=== PATIENT | female | born 1985 | race Caucasian/White ===

== ENCOUNTER 2025-02-11 07:17 | Outpatient (CLI) | payer BC, SELFPAY ==
--- NOTE | 2025-02-11 07:15 | CRLHL7_ITS ---
For Patients: As a result of the Cures Act, medical imaging exams and procedure reports are released immediately into your electronic medical record. You may view this report before your referring provider. If you have questions, please contact your health care provider. OB ULTRASOUND LMP: 07/20/2024. MEL by LMP: 04/26/2025. GA: 29 w, 3 d. Single. INDICATION: Polyhydramnios, mild. TECHNIQUE: Real time grayscale imaging of the fetus was performed. Transabdominal. CERVIX: Not visualized. POSITIONING: Vertex. AMNIOTIC FLUID: 25.1 cm DOROTHY. 8.3 cm. SDP (N: greater than 2 x 1 cm) PLACENTA: Technique: Transabdominal. PLACENTA POSITION: Anterior. DOPPLER: heart rate: 150 bpm. IMPRESSION: Amniotic fluid single deepest pocket 8.3 cm. DOROTHY 25.1 cm. Sha Young M.D. Diagnostic Radiologist [email or web address] CASSIDY/mirian vela/Dictated by: Sha Young MD @ 02/11/2025 9:45:00 AM (Electronically Signed)
== END 2025-02-11 07:18 | disposition home or self-care (01) ==
LOC: US 07:18
PROVIDERS: Visit Provider Physician Assistant
DX: O40.3XX0 Polyhydramnios, third trimester, not applicable or unspecified (principal); Z3A.29 29 weeks gestation of pregnancy
CPT/HCPCS: 76815

== ENCOUNTER 2025-02-12 07:50 | Outpatient (CLI) | payer BC, SELFPAY | END 2025-02-12 07:51 | disposition home or self-care (01) | LOC: NFLDREF 02-15 11:41 | PROVIDERS: Visit Provider Physician Assistant | DX: O99.213 Obesity complicating pregnancy, third trimester (principal) | CPT/HCPCS: 82951; 82952 ==

== ENCOUNTER 2025-03-01 07:18 | Outpatient (CLI) | payer BC, SELFPAY ==
--- NOTE | 2025-03-01 07:15 | CRLHL7_ITS ---
For Patients: As a result of the Century Cures Act, medical imaging exams and procedure reports are released immediately into your electronic medical record. You may view this report before your referring provider. If you have questions, please contact your health care provider. OB ULTRASOUND FOLLOW-UP CLINICAL HISTORY: Mild polyhydramnios, growth and DOROTHY. TECHNIQUE: Real time dove scale imaging of the fetus was performed. Transabdominal imaging performed. COMPARISON: 02/11/2025. FINDINGS: LMP: 07/20/2024. MEL by LMP: 04/26/2025. GA: 32 weeks 0 days. Cervix: Not visualized. Positioning: Vertex. Amniotic Fluid: 25.8 cm DOROTHY. 8.9 cm SDP. Placenta Technique: TA. Placenta Position: Anterior. Dopplers: Heart Rate: 133 bpm. BIOMETRY BPD: 8.2 cm, 32 weeks 6 days. 69.0% HC: 30.4 cm, 33 weeks 6 days. 62.5% AC: 28.5 cm, 32 weeks 4 days. 64.6% FL: 6.2 cm, 32 weeks 4 days. 45.7% FL/AC Ratio: 21.9% HC/AC Ratio: 1.1. EFW: 2015 grams, 4 lb 7 oz. Age by this US: 32 weeks 6 days. MEL by this US: 04/20/2025. Percentile by MEL: 59.9% IMPRESSION: 1. Sonographic gestational age 32 weeks 6 days and sonographic due date 04/20/2025. Sonographic age is 6 weeks ahead of the clinical age. 2. Estimated weight 60th percentile. Abdominal circumference 65th percentile. 3. Amniotic fluid single deepest pocket 8.9 cm. DOROTHY 25.8 cm. Sha Young M.D. Diagnostic Radiologist [email or web address] Transcribed: 1:51 pm DW/Dictated by: Sha Young MD @ 03/01/2025 1:03:00 PM (Electronically Signed)
== END 2025-03-01 07:19 | disposition home or self-care (01) ==
LOC: US 07:19
PROVIDERS: Visit Provider Physician Assistant
DX: O40.3XX0 Polyhydramnios, third trimester, not applicable or unspecified (principal); O99.213 Obesity complicating pregnancy, third trimester; E66.01 Morbid (severe) obesity due to excess calories; Z68.41 Body mass index [BMI] 40.0-44.9, adult; O36.63X0 Maternal care for excessive fetal growth, third trimester, not applicable or unspecified; Z3A.32 32 weeks gestation of pregnancy
CPT/HCPCS: 76816

== ENCOUNTER 2025-03-18 09:02 | Outpatient (CLI) | payer BC, SELFPAY ==
--- NOTE | 2025-03-18 09:15 | CRLHL7_ITS ---
For Patients: As a result of the Century Cures Act, medical imaging exams and procedure reports are released immediately into your electronic medical record. You may view this report before your referring provider. If you have questions, please contact your health care provider. OB ULTRASOUND FOLLOW-UP CLINICAL HISTORY: Polyhydramnios. COMPARISON: 03/01/2025, 02/11/2025. TECHNIQUE: Real time dove scale imaging of the fetus was performed. Transabdominal imaging performed. FINDINGS: MEL by LMP: 04/16/2025. GA: 34 weeks 3 days. Gestation: Single. Cervix: Not visualized. Positioning: Vertex. Placenta: Technique: TA. Placenta Position: Anterior. Dopplers: Heart Rate: 152 bpm. IMPRESSION: Amniotic fluid single deepest pocket 9.1 cm. DOROTHY 26.3 cm. Sha Young M.D. Diagnostic Radiologist [email or web address] Transcribed: 10:17 am DW/Dictated by: Sha Young MD @ 03/18/2025 10:01:00 AM (Electronically Signed)
== END 2025-03-18 09:03 | disposition home or self-care (01) ==
LOC: US 09:06
PROVIDERS: Visit Provider Obstetrics & Gynecology
DX: O40.3XX0 Polyhydramnios, third trimester, not applicable or unspecified (principal); Z3A.34 34 weeks gestation of pregnancy
CPT/HCPCS: 76815

== ENCOUNTER 2025-03-30 09:10 | Outpatient (CLI) | payer BC, SELFPAY ==
--- NOTE | 2025-03-30 09:15 | CRLHL7_ITS ---
For Patients: As a result of the Century Cures Act, medical imaging exams and procedure reports are released immediately into your electronic medical record. You may view this report before your referring provider. If you have questions, please contact your health care provider. OB ULTRASOUND MEL by LMP: 04/26/2025. GA: 36 w, 1 d. Single. Comparison: Ultrasound 03/18/2025, 03/15/2025, 03/01/2025. INDICATION: Polyhydramnios. TECHNIQUE: Real time grayscale imaging of the fetus was performed. Transabdominal. CERVIX: Not visualized. POSITIONING: Vertex. AMNIOTIC FLUID: 27.0 DOROTHY. 10.7 cm. SDP (N: greater than 2 x 1 cm) PLACENTA: Technique: Transabdominal. PLACENTA POSITION: Anterior. DOPPLER: heart rate: 144 bpm. BIOMETRY: BPD: 8.9 cm. 36 w, 0 d, 54.2%. HC: 32.6 cm. 36 w, 6 d, 38.5%. AC: 33.3 cm. 37 w, 2 d, 86.3%. FL: 7.0 cm. 35 w, 6 d, 38.0%. FL/AC ratio: 21.0%. HC/AC ratio: 1.0. EFW: 3012g. Weight: 6 lbs., 10 oz. age by this US: 36 w, 4 d. MEL by this US: 04/23/2025. Percentile by MEL: 67.9%. IMPRESSION: 1. Sonographic gestational age 36 weeks 4 days and sonographic due date 04/23/2025. Good correlation with dates. Normal interval growth. 2. Estimated weight 68th percentile. Abdominal circumference 86th percentile. 3. Amniotic fluid single deepest pocket 7 cm. DOROTHY 27.0 cm. Sha Young M.D. Diagnostic Radiologist [email or web address] CASSIDY/mirian vela/Dictated by: Sha Young MD @ 03/30/2025 11:48:00 AM (Electronically Signed)
== END 2025-03-30 09:11 | disposition home or self-care (01) ==
LOC: US 09:10
PROVIDERS: Visit Provider Obstetrics & Gynecology
DX: O40.3XX0 Polyhydramnios, third trimester, not applicable or unspecified (principal); Z3A.36 36 weeks gestation of pregnancy
CPT/HCPCS: 76816

== ENCOUNTER 2025-04-13 13:50 | Outpatient (CLI) | payer BC, SELFPAY ==
--- NOTE | 2025-04-13 14:00 | CRLHL7_ITS ---
For Patients: As a result of the Cures Act, medical imaging exams and procedure reports are released immediately into your electronic medical record. You may view this report before your referring provider. If you have questions, please contact your health care provider. OB ULTRASOUND TRANSABDOMINAL LIMITED Clinical History: MEL by LMP: 04/26/5025. GA: 38 w, 1 d. Single. Comparison: 03/30/2025, 03/18/2025, 03/15/2025. INDICATION: Mild poly. TECHNIQUE: Real time dove scale imaging of the fetus was performed. Transabdominal imaging performed. CERVIX: Not visualized. POSITIONING: Vertex. AMNIOTIC FLUID: 25.8 cm. DOROTHY. 10.1 cm SDP (N: greater than 2 x 1 cm) PLACENTA: Technique: Transabdominal. PLACENTA POSITION: Anterior. DOPPLER: heart rate: 136 bpm. IMPRESSION: Amniotic fluid single deepest pocket 10.1 cm. DOROTHY 25.8 cm. Sha Young M.D. Diagnostic Radiologist [email or web address] SP/Dictated by: Sha Young MD @ 04/13/2025 4:06:00 PM (Electronically Signed)
== END 2025-04-13 13:51 | disposition home or self-care (01) ==
LOC: US 13:51
PROVIDERS: Visit Provider Obstetrics & Gynecology
DX: O40.3XX0 Polyhydramnios, third trimester, not applicable or unspecified (principal); Z3A.38 38 weeks gestation of pregnancy
CPT/HCPCS: 76815

== ENCOUNTER 2025-04-13 19:43 | Inpatient (IN) | payer BC, SELFPAY ==
[2025-04-13] VITALS (20 sets, daily range): BP systolic 130–148; BP diastolic 60–85; PULSE 73–97; RESP 16–17; TEMP 36.6–36.7; O2SAT 97
[2025-04-13 15:44] LABS: Hematocrit* 35.2 % (33.0-51.0); Hemoglobin* 11.6 gm/dL (12.0-16.0); Mean Corpuscular HGB Conc 33 gm/dL (32-36); Mean Corpuscular Hemoglobin 32 pg (26-34); Mean Corpuscular Volume 96 fL (80-100); Red Blood Count* 3.68 m/uL (4.00-5.20); White Blood Count* 12.12 K/uL (4.50-11.00)
[2025-04-13 15:51] LABS: Slide Review Reflex No
[2025-04-13 15:59] LABS: Alanine Aminotransferase* 17 U/L (4-35); Aspartate Amino Transferase* 24 U/L (12-35); Blood Urea Nitrogen* 9 mg/dL (5-24); Creatinine* 0.6 mg/dL (0.5-1.5); Estimated Glomerular Filt Rate 117 ml/min
[2025-04-13 16:39] LABS: Protein Creatinine Ratio Urine 0.11 (0-0.19)
--- NOTE | 2025-04-13 18:36 | W.PM.LDBA ---
Subjective History of Present Illness Date Seen: 04/13/25 Narrative: Patient is being admitted to Labor and Delivery for IOL due to meeting criteria of GHTN. She is a 40 year old at 38 1/7 weeks gestation. Her full history and physical was dictated by Dr. Laird on 04/06/25. Please see this for details. Patient seen today in clinic and found with elevated blood pressures in the mild range. Patient had already an isolated elevated blood pressure in January- due to this currently meets criteria for GHTN. Recommendation has been given for admission and start IOL. Labs today show no evidence of proteinuria, neither concerns for severe hypertension disorder of . Patient denies headaches, vision changes or pain in her upper abdomen. Specific Issues/Plans Partner: [] Baby girl: Nataliia Yarbrough H&P: 04/06/[address] Laird * testing- scheduled # AMA, 40 Genetic screening: low risk, AFP low risk Level 2 ultrasound: normal # obesity, BMI 44.97 ASA 81mg Referral to anesthesia: [x] 04/06/25 Weekly testing starting at 34 weeks Growth ultrasound at 28 and 34 weeks Delivery: 39-39.6 weeks # Mild polyhydramnios, DOROTHY 27.85 at 27+4 weeks Delivery 39 0/7 - 40 6/7 DOROTHY every 2 weeks 02/11/25: DOROTHY 25.1, SDP 8.3 cm 03/01/25: DOROTHY 25.8, SDP 8.9 cm 03/18/26: DOROTHY 26.3, SDP 9.1 cm 03/30/25: DOROTHY 27, SDP 10.7 Growth every 4 weeks 02/02/25 (28 1/7): EFW 73rd percentile, AC 71st percentile, DOROTHY 27.85, MVP 9.275 Growth at 32 weeks: EFW 2015 g (60%), BPD 69%, HC 62.5%, AC 65%, FL 46%. Growth at 36 weeks: EFW 67.9%, AC 86.3%, all other growth parameters normal. # elevated blood pressure 02/02/2025: 135/92. 9/: 122/82 Home blood pressure monitoring: At transfer visit had not started monitoring # history of genital herpes Valtrex 500 mg BID at 36 weeks # 1hour GTT: 144 3 hour GTT: all normal 88/177/146/83 # anxiety, doing well without treatment # Rubella nonimmune MMR PP Imagin. 10/20/2024: 13 weeks 1 day, normal nuchal translucency. Anatomy normal for gestational age 2. 12/15/2024: Normal anatomy. echo was very limited. No evidence of placenta previa. Normal amniotic fluid normal growth 3. 02/02/25: EFW 73rd percentile, AC 71st percentile, DOROTHY 27.85, MVP 9.275 4. 03/01/25: Vertex presentation, SDP 8.9 cm, DOROTHY 25.8 cm (mild polyhydramnios), EFW 2015 g (60%), BPD 69%, HC 62.5%, AC 65%, FL 46%. 5. 03/18/2025: Vertex, SDP 9.1 cm, DOROTHY 26.3 cm (mild polyhydramnios) 7. 03/30/2025: Cephalic, DOROTHY 27, SDP 6.7, EFW 67.9%, AC 86.3%, BPD 54.2%, HC 38.5%, FL 38% Vaccinations: COVID: [] Flu: [] Tdap: 02/11/2025 RSV: 03/18/25 32 week mental health: [] Last pap: 12/29/2021 Labs 09/30/2024: O positive, negative antibody screen, hemoglobin 12.4, platelets 272, rubella nonimmune, RPR nonreactive, hepatitis B surface antigen negative, hepatitis-B antibody positive, hepatitis B core negative, HIV negative, gonorrhea and Chlamydia negative, urine culture negative hep C negative 28 week labs 02/02/2025: Hemoglobin 11.1, 1 hour GTT 144, RPR negative OB - Problem Based A/P Additional Plan (1) Gestational hypertension: Status: Acute (2) Polyhydramnios: Problem details: Mild Status: Acute (3) Obesity affecting : Status: Acute Plan IOL started with placement of cook catheter 50mL on each balloon. Plan to start low dose Oxytocin overnight. Continuous monitoring. Close monitoring of vital signs, will note repeat labs unless new concerns arise for severe hypertension. GBS negative, no need for antibiotic prophylaxis. Pain management as per patient preference. OB Result Labs Labs: Hemoglobin upon admission 11.6mg/dL Type and screen ordered OB Exam Physical Exam Vital signs: Temp Pulse Resp BP Pulse Ox 97.9 F 96 17 137/80 97 04/13/25 15:02 04/13/25 18:34 04/13/25 15:02 04/13/25 18:34 04/13/25 15:02 Detailed Labor and Delivery Exam Patient Gravid: yes Dilation (cm): 1 Effacement (%): 75 Cervix position: mid Consistency: soft Fetus (Single) Station: -2 Amniotic Membrane Status: intact Heart Rate Baseline: 120 Monitor Accelerations: Present Monitor Decelerations: None Nursing Home Variability: Moderate (6-25) (At the moment, moderate upon admission, will continue close monitoring. )
[2025-04-14] VITALS (118 sets, daily range): BP systolic 111–168; BP diastolic 58–103; PULSE 64–100; RESP 16–18; TEMP 36.5–36.9; O2SAT 82–100
[2025-04-14] MEDS: OXYTOCIN 30 unit/500 ML in NS 30 UNIT/500 ML BAG IVPB (02:24)
[2025-04-14] MEDS: LACTATED RINGERS 1000 ML 1,000 ML 125 ML IV ×2 (02:24→09:28)
--- NOTE | 2025-04-14 08:16 | P.OBPN_ITS ---
Subjective Time Seen by Provider: 08:32 Date Seen: 04/14/25 Narrative: Surinder is a 40yo at 38w2d GA admitted for IOL in the setting of gestational HTN. is otherwise complicated by AMA, obesity, polyhydramnios, genital herpes (on valtrex). IOL has included cook catheter and low dose pitocin overnight. Cook came out just prior to 0800, pitocin titration ongoing. Patient is feeling well, notes minimal pain with contractions. Explained potential next steps in induction inc luding amniotomy, where risks/benefits were discussed. Objective Exam: General: Alert and oriented, in no acute distress Psych: Appropriate mood and affect Abdomen: Gravid. FHR: Category 1. Baseline 135bpm, moderate variability, accelerations present, no decelerations [place]: difficult to appreciate contractions Cervix: 3/75/-3. vertex is palpable but easily ballotable. Vital Signs: Last Vital Signs Temp 98.5 F 04/14/25 05:17 Pulse 78 04/14/25 07:55 Resp 18 04/14/25 05:17 BP 139/85 04/14/25 07:55 Pulse Ox 97 04/13/25 15:02 Assessment Station: -2 Heart Rate Baseline: 120 Monitor Accelerations: Present Monitor Decelerations: None Plan Plan: Surinder is a 40yo at 38w2d GA admitted for IOL in the setting of gestational HTN. is otherwise complicated by AMA, obesity, polyhydramnios, genital herpes (on valtrex). - IOL has included cook catheter and pitocin. Cervix is now 3/75/-3, given high station and ballotable vertex patient is not a safe candidate for amniotomy at this time. Plan to continue Pitocin titration, where patient will likely have epidural placed in the next few hours (will only start medication if she feels it is needed). Plan to recheck cervix in about 4 hours at which time AROM will likely be recommended. - BPs have been normal to mild range throughout hospitalization. Asymptomatic, preE labs normal on admission. - Last growth US on 03/30 with EFW 3012g at 68%ile. - MVP 10.1cm, DOROTHY 25.8cm via US on 04/13 - BT O+ - GBS negative
[2025-04-14] MEDS: MAGNESIUM IV 4 GM/100 ML PIGGYBACK IVPB (14:38)
[2025-04-14] MEDS: LABETALOL HCL 5 MG/ML inj IVP (14:53)
[2025-04-14] MEDS: MAGNESIUM Infusion 40 GM/1,000 ML IV.SOLN IVPB (15:09)
[2025-04-14 15:17] LABS: Hematocrit* 33.7 % (33.0-51.0); Hemoglobin* 10.9 gm/dL (12.0-16.0); Mean Corpuscular HGB Conc 32 gm/dL (32-36); Mean Corpuscular Hemoglobin 32 pg (26-34); Mean Corpuscular Volume 98 fL (80-100); Red Blood Count* 3.44 m/uL (4.00-5.20); White Blood Count* 14.29 K/uL (4.50-11.00)
[2025-04-14 15:31] LABS: Blood Urea Nitrogen* 12 mg/dL (5-24); Creatinine* 0.7 mg/dL (0.5-1.5); Estimated Glomerular Filt Rate 113 ml/min
[2025-04-14 15:32] LABS: Alanine Aminotransferase* 18 U/L (4-35); Aspartate Amino Transferase* 23 U/L (12-35)
[2025-04-14 15:35] LABS: Slide Review Reflex No
[2025-04-14] MEDS: ACETAMINOPHEN 500 MG TABLET 1000 MG PO (15:41)
[2025-04-14] MEDS: LACTATED RINGERS 1000 ML 1,000 ML 75 ML IV (18:06)
[2025-04-14] MEDS: LACTATED RINGERS 1000 ML 1,000 ML 375 ML IV (19:23)
[2025-04-14] MEDS: ROPIVACAINE 0.2% 100 ml 100 ML 12 MG EPIDURAL (19:36)
[2025-04-14] MEDS: LIDOCAINE 2% (PF) 5 ML VIAL EPIDURAL (19:43)
--- NOTE | 2025-04-14 19:47 | PM.ANBPRC ---
[facility] Social History Narrative: Occupation: []. Marital status: . Amish/cultural needs: no. Chemical or radiation exposure: no. Pre- tobacco use: no. Pre- alcohol use: no. Current tobacco use: no. Current alcohol use: no. Recreational drug use: no. Dietary restrictions: no. Blood transfusion acceptable in an emergency: yes. PSYCHOSOCIAL HISTORY: History of depression or currently depressed: History of depression. Current or past physical, emotional, or sexual mistreatment: Denies. Problems that will make it hard to make it to appointments: Denies. What is your current living situation?: I presently have a place to live Problems where you live: no known problems In the past 12 months, utilities in danger of being shut off: no In past 12 months, lack of transportation kept you from medical appts, meetings, work, or getting things needed for daily living: no In the past 12 mos, have been you worried that your food would run out before you had money to buy more?: never true In the past 12 mos, the food you bought just didn't last and you didn't have money to buy more?: never true Smoking Status: Never smoker How often does anyone, including family, friends and others, physically hurt you: never How often does anyone, including family, friends and others, insult or talk down to you: never How often does anyone, including family, friends and others, threaten you with harm: never How often does anyone, including family, friends and others, scream or curse at you: never Meds Home Medications and Allergies Home Medications ?Medication ?Instructions ?Recorded ?Confirmed ?Type [id number] 3 fatty no.1 27 cap PO 02/08/25 04/13/25 History mg-1 mg-300 mg capsule aspirin 81 mg tablet 81 mg PO QDAY 02/08/25 04/13/25 History cholecalciferol (vitamin D3) 50 50 mcg PO QDAY 02/08/25 04/13/25 History mcg (2,000 unit) capsule valacyclovir 1 gram tablet 1,000 mg PO QDAY #30 tabs 03/18/25 04/13/25 Rx calcium carbonate (Tums) 650 mg PO ONCE 03/30/25 04/13/25 History Allergies Allergy/AdvReac Type Severity Reaction Status Date / Time cat hair Allergy Watery Eye Uncoded 04/13/25 14:20 Results Labs Labs: Laboratory Results - last 24 hr 04/13/25 04/14/25 18:55 Unknown WBC 14.29 H RBC 3.44 L Hgb 10.9 L Hct 33.7 MCV 98 MCH 32 MCHC 32 Plt Count 232 BUN 12 Creatinine 0.7 Estimated GFR 113 AST 23 ALT 18 Blood Type O Positive Antibody Screen NEGATIVE Vital Signs Vital Signs: Last Vital Signs Temp 97.9 F 04/14/25 17:34 Pulse 70 04/14/25 19:43 Resp 18 04/14/25 15:30 BP 116/65 04/14/25 19:43 Pulse Ox 100 04/14/25 19:43 Weight: 68.039 kg Height: 162.56 cm Anesthesia Procedures Epidural Insertion Patient Location: OB Start Time: 19:10 Stop Time: 19:48 Start Date: 04/14/25 Stop Date: 04/14/25 Reason for Block: procedure for pain Patient Position: sitting Performed By: Kennedy Lobato Preanesthetic Checklist: IV checked, risks and benefits discussed, surgical consent, monitors and equipment checked, pre-op evaluation, timeout performed and anesthesia consent Prep: chlorhexidine gluconate Monitoring: blood pressure monitoring, continuous pulse oximetry and heart rate Approach: midline Vertebral Space: lumbar (1-5) Epidural Technique: CHRISTOPHE air Needle Type: Tuohy needle Injection Technique: continuous catheter Needle gauge: 17 Needle Length (cm): 10 cm Needle Insertion Depth (cm): 9 Catheter Gauge: 19 Catheter Type: multi-orifice Catheter at skin depth (cm): 14 Test Dose Result: negative and lidocaine 1.5% with epinephrine 1 to 200,000
[2025-04-14 22:02] LABS: Protein Creatinine Ratio Urine 0.37 (0-0.19)
[2025-04-14 22:52] LABS: Hematocrit* 33.8 % (33.0-51.0); Hemoglobin* 10.8 gm/dL (12.0-16.0); Mean Corpuscular HGB Conc 32 gm/dL (32-36); Mean Corpuscular Hemoglobin 32 pg (26-34); Mean Corpuscular Volume 99 fL (80-100); Red Blood Count* 3.43 m/uL (4.00-5.20); White Blood Count* 15.42 K/uL (4.50-11.00)
[2025-04-14 22:57] LABS: Alanine Aminotransferase* 17 U/L (4-35); Aspartate Amino Transferase* 29 U/L (12-35); Blood Urea Nitrogen* 13 mg/dL (5-24); Creatinine* 0.7 mg/dL (0.5-1.5); Est. Creatinine Clearance* 93.17; Estimated Glomerular Filt Rate 113 ml/min
[2025-04-14 23:01] LABS: Slide Review Reflex No
--- NOTE | 2025-04-14 23:55 | PM.OBPNL ---
Subjective Time Seen by Provider: 23:25 Date Seen: 04/14/25 Narrative: Surinder is a 40yo at 38w2d GA admitted for IOL in the setting of gestational HTN. is otherwise complicated by AMA, obesity, polyhydramnios, genital herpes (on valtrex). IOL has included cook catheter, pitocin and AROM. She is comfortable s/p epidural, now complete by RN exam. Objective Exam: General: Alert and oriented, in no acute distress Psych: Appropriate mood and affect Abdomen: Gravid. FHR: Category 2. Baseline 135bpm, minimal to moderate variability, variable decelerations with pushing with rapid return to normal baseline. [place]: Contractions about q2-3 minutes Cervix: 10/100/+1.5 Vital Signs: Last Vital Signs Temp 97.9 F 04/14/25 17:34 Pulse 85 04/14/25 23:47 Resp 18 04/14/25 15:30 BP 150/72 H 04/14/25 23:47 Pulse Ox 100 04/14/25 23:51 Assessment Station: -2 Heart Rate Baseline: 120 Monitor Accelerations: Present Monitor Decelerations: None Plan Plan: Surinder is a 40yo at 38w2d GA admitted for IOL in the setting of gestational HTN. is otherwise complicated by AMA, obesity, polyhydramnios, genital herpes (on valtrex). Patient is complete and pushing. Good maternal effort, have not yet appreciated descent though it has only been 30 minutes of pushing. Plan to reassess progress throughout second stage. Hopeful for .
[2025-04-15] VITALS (88 sets, daily range): BP systolic 99–164; BP diastolic 53–88; PULSE 77–181; RESP 16–18; TEMP 36.5–37.4; O2SAT 83–100
[2025-04-15] MEDS: miSOPROStoL 800 MCG/4 TABLET PR (01:27)
[2025-04-15] MEDS: OXYTOCIN 30 unit/500 ML in NS 30 UNIT/500 ML BAG 310 UNIT IVPB (01:51)
--- NOTE | 2025-04-15 02:31 | W.PM.VAGDEL1 ---
Procedure Delivery date: 04/15/25 Procedure Done: Global Procedure Details: Normal spontaneous vaginal delivery Deep second degree laceration repair Events: Pre-Eclampsia, Labor Induction, Polyhydramnios, AMA and Other (Obesity) Intrapartal Events: Labor Induction Delivery augmentation: rupture of membranes Delivery monitor: external FHT Route of delivery: Laceration description: Perineal - 2nd Degree Delivery repair: Vicryl Estimated blood loss (mL): 935 Anesthesia type: Epidural Disposition: floor Narrative: Surinder is a 40yo at 38w2d GA admitted for IOL in the setting of gestational HTN. is otherwise complicated by AMA, obesity, polyhydramnios, genital herpes (on valtrex). heart tones on admission were category 1. Her labor was induced with Cook catheter and Pitocin and epidural was utilized for pain management. Status of bag of montero: AROM performed intrapartum, return of clear fluid. heart tones during active labor were category 1 primarily. Rare category 2 for intermittent variable decelerations. She was complete at 2311 and started pushing at 2320. She made excellent descent throughout the second stage of labor, and had a normal spontaneous vaginal delivery at 0053. heart tones during second stage of labor were category 2 for recurrent variable decelerations, with rapid return to normal baseline. Baby delivered OA, restituted SHORTY and the posterior hand was noted to have a compound presentation. Attempted to deliver anterior shoulder where resistance was met, thus the posterior arm was delivered by atraumatically sweeping the extremity out over the trunk and face. The anterior shoulder and body then delivered without difficulty. Nuchal cord absent. The cord was clamped and cut after delayed cord clamping. Active management of the third stage occurred with IV pitocin and gentle cord traction and the placenta delivered spontaneous and intact at 0102. Cord gases sent: no Cord blood sent for ABO: no details: - Liveborn female fetus at 0053 - weight 3410g - APGARs were 7 and 8 at 1 and 5 minutes respectively Perineum and vagina were inspected, and the following lacerations were noted: deep second degree laceration with an area of brisk bleeding at the midpoint. A 2-0 vicryl was utilized starting at the apex in a running locking fashion to reapproximate the deep vaginal tissues. A new 2-0 vicryl was then utilized to throw figure of eight sutures to reapproximate the bleed tissues working deep to superficial. Ongoing bleeding was noted despite these efforts, though decreased in volume. A 0 vicryl was requested and an additional figure of eight was applied where excellent hemostasis was then noted. A new 2-0 vicryl was then utilized to repair just distal to the former bleeding section out to the hymen, down perineal subcutaneous tissues and back up in a running subcuticular stitch in the usual fashion. Excellent hemostasis was noted at completion of repair. Intermittent lower uterine segment atony was noted, which responded well to bimanual massage, pitocin and pr cytotec. Total QBL was 935mL, secondary to tissue trauma primarily and atony. Excellent hemostasis was again noted. The following counts were correct: sponges, needles, instruments. Mother and infant in stable condition following the . Debrief completed with patient and partner. [place] Infant Gender: Female presentation: vertex (Compound presentation with right upper extremity) Placental Delivery Description: Spontaneous Cord Description: 3 Vessels
[2025-04-15] MEDS: LABETALOL HCL 100 MG TABLET 200 MG PO ×2 (02:38→20:22)
[2025-04-15] MEDS: LABETALOL HCL 5 MG/ML inj IVP (03:08)
[2025-04-15] MEDS: IBUPROFEN 600 MG TABLET PO ×3 (03:30→17:04)
[2025-04-15 04:54] LABS: Hematocrit* 30.7 % (33.0-51.0); Hemoglobin* 10.1 gm/dL (12.0-16.0); Mean Corpuscular HGB Conc 33 gm/dL (32-36); Mean Corpuscular Hemoglobin 32 pg (26-34); Mean Corpuscular Volume 97 fL (80-100); Red Blood Count* 3.17 m/uL (4.00-5.20); White Blood Count* 17.39 K/uL (4.50-11.00)
[2025-04-15 04:56] LABS: Slide Review Reflex No
[2025-04-15 05:10] LABS: Alanine Aminotransferase* 19 U/L (4-35); Aspartate Amino Transferase* 26 U/L (12-35); Blood Urea Nitrogen* 10 mg/dL (5-24); Creatinine* 0.7 mg/dL (0.5-1.5); Est. Creatinine Clearance* 93.17; Estimated Glomerular Filt Rate 113 ml/min
[2025-04-15] MEDS: ACETAMINOPHEN 500 MG TABLET 1000 MG PO ×3 (05:54→20:22)
[2025-04-15] MEDS: LACTATED RINGERS 1000 ML 1,000 ML 75 ML IV ×2 (08:20→23:15)
[2025-04-15] MEDS: DOCUSATE SODIUM 100 MG CAPSULE PO (09:35)
[2025-04-15] MEDS: ENOXAPARIN 40 MG/0.4 ML INJ SUBCUT (09:35)
[2025-04-15] MEDS: MAGNESIUM Infusion 40 GM/1,000 ML IV.SOLN IVPB (09:57)
[2025-04-15 11:05] LABS: Hematocrit* 29.5 % (33.0-51.0); Hemoglobin* 9.6 gm/dL (12.0-16.0); Mean Corpuscular HGB Conc 33 gm/dL (32-36); Mean Corpuscular Hemoglobin 32 pg (26-34); Mean Corpuscular Volume 98 fL (80-100); Red Blood Count* 3.02 m/uL (4.00-5.20); White Blood Count* 14.74 K/uL (4.50-11.00)
[2025-04-15 11:13] LABS: Alanine Aminotransferase* 17 U/L (4-35); Aspartate Amino Transferase* 25 U/L (12-35); Blood Urea Nitrogen* 9 mg/dL (5-24); Creatinine* 0.7 mg/dL (0.5-1.5); Est. Creatinine Clearance* 93.17; Estimated Glomerular Filt Rate 113 ml/min
[2025-04-15 11:16] LABS: Slide Review Reflex No
[2025-04-15] MEDS: CYCLOBENZAPRINE HCL 10 MG TABLET 5 MG PO (11:43)
--- NOTE | 2025-04-15 14:48 | PM.ANPOST ---
Post Anesthesia Note Post Anesthesia Note Patient seen: Inpatient Respiratory Status: adequate Cardiovascular Status: adequate Mental Status: baseline Pain: adequate Temp: baseline Anesthetic awareness: N/A Complications: none Follow care: none
[2025-04-15 16:33] LABS: Hematocrit* 27.6 % (33.0-51.0); Hemoglobin* 8.9 gm/dL (12.0-16.0); Mean Corpuscular HGB Conc 32 gm/dL (32-36); Mean Corpuscular Hemoglobin 32 pg (26-34); Mean Corpuscular Volume 98 fL (80-100); Red Blood Count* 2.81 m/uL (4.00-5.20); White Blood Count* 12.71 K/uL (4.50-11.00)
[2025-04-15 16:34] LABS: Slide Review Reflex No
[2025-04-15 16:47] LABS: Alanine Aminotransferase* 15 U/L (4-35); Aspartate Amino Transferase* 21 U/L (12-35); Blood Urea Nitrogen* 9 mg/dL (5-24); Creatinine* 0.7 mg/dL (0.5-1.5); Est. Creatinine Clearance* 93.17; Estimated Glomerular Filt Rate 113 ml/min
[2025-04-15] MEDS: PROCHLORPERAZINE 10 MG TABLET 5 MG PO (18:05)
[2025-04-15 22:40] LABS: Hematocrit* 26.7 % (33.0-51.0); Hemoglobin* 8.5 gm/dL (12.0-16.0); Mean Corpuscular HGB Conc 32 gm/dL (32-36); Mean Corpuscular Hemoglobin 32 pg (26-34); Mean Corpuscular Volume 99 fL (80-100); Red Blood Count* 2.69 m/uL (4.00-5.20); White Blood Count* 11.94 K/uL (4.50-11.00)
[2025-04-15 22:52] LABS: Slide Review Reflex No
[2025-04-15 22:59] LABS: Alanine Aminotransferase* 15 U/L (4-35); Aspartate Amino Transferase* 23 U/L (12-35); Blood Urea Nitrogen* 9 mg/dL (5-24); Creatinine* 0.7 mg/dL (0.5-1.5); Est. Creatinine Clearance* 93.17; Estimated Glomerular Filt Rate 113 ml/min
[2025-04-16 00:55] VITALS: BP 117/75; PULSE 89; RESP 18; TEMP 36.7
[2025-04-16 04:31] VITALS: BP 110/71; PULSE 78; RESP 18; TEMP 36.6
[2025-04-16] MEDS: IBUPROFEN 600 MG TABLET PO ×2 (04:37→10:53)
[2025-04-16 04:48] LABS: Hematocrit* 27.1 % (33.0-51.0); Hemoglobin* 8.6 gm/dL (12.0-16.0); Mean Corpuscular HGB Conc 32 gm/dL (32-36); Mean Corpuscular Hemoglobin 32 pg (26-34); Mean Corpuscular Volume 100 fL (80-100); Red Blood Count* 2.71 m/uL (4.00-5.20); White Blood Count* 9.75 K/uL (4.50-11.00)
[2025-04-16 04:55] LABS: Slide Review Reflex No
[2025-04-16 05:04] LABS: Alanine Aminotransferase* 14 U/L (4-35); Aspartate Amino Transferase* 20 U/L (12-35); Blood Urea Nitrogen* 6 mg/dL (5-24); Creatinine* 0.6 mg/dL (0.5-1.5); Est. Creatinine Clearance* 108.70; Estimated Glomerular Filt Rate 117 ml/min
[2025-04-16] MEDS: ACETAMINOPHEN 500 MG TABLET 1000 MG PO (08:02)
[2025-04-16] MEDS: PROCHLORPERAZINE 10 MG TABLET 5 MG PO (08:04)
[2025-04-16 08:12] VITALS: BP 129/84; PULSE 83; RESP 16; TEMP 36.9; O2SAT 99
[2025-04-16] MEDS: LABETALOL HCL 100 MG TABLET 200 MG PO (09:05)
[2025-04-16] MEDS: DOCUSATE SODIUM 100 MG CAPSULE PO (09:05)
--- NOTE | 2025-04-16 09:41 | PM.OBDSVD1 ---
DS: Providers Provider Date Seen: 04/16/25 Date of admission: 04/13/25 19:43 Primary care physician: Not a Local Provider Admitting Clinician: Gay Hinds MD Attending Physician on discharge: Keyla Ann MD Date of Discharge: 04/16/25 DS: Diagnosis Discharge Diagnosis (1) Normal spontaneous vaginal delivery: Status: Acute Problem details: with 2nd degree laceration (2) Pre-eclampsia affecting puerperium: Status: Acute Problem details: preeclampsia with severe features by BP criteria (3) Anemia due to acute blood loss: Status: Acute (4) hemorrhage: Status: Acute Problem details: due to obstetrical laceration and atony, QBL 935 mL (5) headache: Status: Acute Problem details: uncertain etiology, most consistent with muscle strain, not consistent with spinal [place] or preeclampsia Exam Narrative: Exam Narrative: General: Pleasant, no acute distress Heart: Regular rate and rhythm, low frequency early systolic murmur, no rub or gallop Lungs: Clear to auscultation bilaterally Abdomen: Soft, nontender, fundus 2 cm below umbilicus Lower extremities: 3+ edema to bilateral shins, no erythema Const: Vital Signs, click to edit/add: Vital Signs - 24 hr 04/15/25 10:27 04/15/25 10:28 04/15/25 13:14 Temperature 98.4 F Pulse Rate 79 Pulse Rate [Pulse Oximeter] 88 Respiratory Rate 16 Blood Pressure 129/70 Blood Pressure [Ri ght Arm] 127/87 Pulse Oximetry 100 98 Oxygen Delivery Me thod Room Air 04/15/25 14:58 04/15/25 17:00 04/15/25 20:10 Temperature 98.4 F 98.2 F 97.7 F Pulse Rate Pulse Rate [Pulse Oximeter] 91 105 H 88 Respiratory Rate 16 16 16 Blood Pressure Blood Pressure [Ri ght Arm] 138/85 143/88 H 135/78 Pulse Oximetry 98 98 Oxygen Delivery Me thod Room Air Room Air 04/15/25 22:30 04/16/25 00:55 04/16/25 04:31 Temperature 98.0 F 97.8 F Pulse Rate Pulse Rate [Pulse Oximeter] 82 89 78 Respiratory Rate 18 18 18 Blood Pressure Blood Pressure [Ri ght Arm] 119/75 117/75 110/71 Pulse Oximetry Oxygen Delivery Me thod Room Air Room Air Room Air 04/16/25 08:12 Temperature 98.4 F Pulse Rate Pulse Rate [Pulse Oximeter] 83 Respiratory Rate 16 Blood Pressure Blood Pressure [Ri ght Arm] 129/84 Pulse Oximetry 99 Oxygen Delivery Me thod Room Air OB - DS: Summary Hospital Course Hospital Course: Surinder is a 40-year-old G2 now P 1-0-1-1 woman who is status post normal spontaneous vaginal delivery on 04/15/2025 at 38 weeks, 3 days gestation. This was in the setting of induction of labor for gestational hypertension. She was subsequently diagnosed with preeclampsia with severe features by blood pressure criteria. She is now status post 24 hours of magnesium sulfate infusion , finishing shortly after midnight. She is currently treated with labetalol 100 mg b.i.d.. She has had no severe range blood pressures in the last 24 hours. She had a second-degree obstetrical laceration. QBL for delivery was 935 mL, secondary primarily to tissue trauma with secondary contribution of atony. Her was transferred to higher level of care for respiratory distress, and Surinder very much wants to join her. Her most recent hemoglobin at 4:44 a.m. today was 8.6. She has suffered from a persistent headache. She reports that this is in her upper neck and occiput, and sometimes moves forward into her frontal area. Thus far, she has been treated with cyclobenzaprine 5 mg once, Compazine, sumatriptan, and the usual ibuprofen and acetaminophen. She was evaluated by anesthesia today and was not thought to have a spinal headache. Of these treatments, Compazine has been the most helpful. At this time, she is sitting up in bed and is feeling much better. She is pumping for her infant. She denies any heavy bleeding. She has not yet been able to have a bowel movement. Infant Gender: Female Time Spent with Patient Time attestation: Total time spent providing and/or coordinating discharge services: Discharge Plan Discharge Disposition: Home, Self-Care Date of Admission: 04/13/25 19:43 Attending Provider on Discharge: Keyla Ann Primary Care Provider: Provider,Not a Local Condition: Stable Anticipated Discharge Date/Time: 04/16/25 09:49 Discharge Medications: New acetaminophen 500 mg Tablet 1,000 mg PO Q6H PRNQty: 0 0RF ferrous sulfate 325 mg (65 mg iron) Tablet 325 mg PO Q48H Qty: 0 0RF prochlorperazine maleate 10 mg Tablet 5 mg PO Q6H PRNQty: 10 0RF docusate sodium 100 mg Capsule 100 mg PO DAILY Qty: 0 0RF ibuprofen 600 mg Tablet 600 mg PO Q6H PRNQty: 0 0RF labetalol 100 mg Tablet 200 mg PO BID Qty: 60 0RF Lanolin (HPA) 100 % Cream 1 applic topical Q1H PRNQty: 0 0RF oxycodone 5 mg tablet 5 mg PO Q8H PRN (Reason: pain) Qty: 7 0RF Continued [id number]-omega 3 fatty no.1 27-1-300 mg capsule PO cholecalciferol (vitamin D3) 50 mcg (2,000 unit) capsule 50 mcg PO QDAY Tums 320 mg calcium (750 mg) tablet,chewable 650 mg PO ONCE Discontinued aspirin 81 mg tablet 81 mg PO QDAY valacyclovir 1 gram tablet 1,000 mg PO QDAY Qty: 30 1RF Discharge Orders: Discharge Order (Routine); Ordered 04/16/25 Ordered By: Keyla Ann Patient Education: OB High Blood Pressure DC, OB Over the Counter Medication Information, OB /Breast Feeding Additional Instructions: Call with BPs consistently greater than 140 systolic (top number) and/or 90 diastolic (bottom number). Activity Detail: Nothing per vagina for 6 weeks Discharge Diet: Regular Follow Up Appointments: Provider,Not a Local [Primary Care Provider, Family Practice] [facility] [Provider Group] Forms: [employer] Info Instructions Discharge Comments: Follow up for: 1. Blood pressure check early next week 2. 2 week visit 3. 6 week visit DS:Data Additional Comments Additional comments: Labs at 4:44 a.m. this morning: BUN 6, creatinine 0.6 AST 20, ALT 14 Hemoglobin 8.6, hematocrit 27.1, platelets 176
[2025-04-16] MEDS: ENOXAPARIN 40 MG/0.4 ML INJ SUBCUT (10:37)
[2025-04-16] MEDS: FERROUS SULFATE 325 MG TABLET PO (10:43)
[2025-04-16] MEDS: MEASLES,MUMPS,RUBELLA VACC/PF 1 DOSE INJ 1 EACH SUBCUT (10:44)
[2025-04-16 11:00] VITALS: BMI 49.8
--- NOTE | 2025-04-17 11:09 | PC.NURSE ---
Field Instructor accessed chart to assist ED admissions with helping patient find which department she should be in. observed patient was previously in labor and delivery with Dr. Ann, clinical writer navigated admissions to OB department.
== END 2025-04-16 12:05 | disposition home or self-care (01) | DRG 560 ==
LOC: OB OUT 19:43 → OB 19:43
PROVIDERS: Obstetrics & Gynecology; Admitting Provider Obstetrics & Gynecology; Visit Provider Obstetrics & Gynecology
DX: O13.4 Gestational [pregnancy-induced] hypertension without significant proteinuria, complicating childbirth (principal); O70.1 Second degree perineal laceration during delivery; O72.1 Other immediate postpartum hemorrhage; O99.02 Anemia complicating childbirth; D62 Acute posthemorrhagic anemia; O99.893 Other specified diseases and conditions complicating puerperium; R51.9 Headache, unspecified; Z3A.38 38 weeks gestation of pregnancy; Z37.0 Single live birth; O99.214 Obesity complicating childbirth; O40.3XX0 Polyhydramnios, third trimester, not applicable or unspecified; O98.32 Other infections with a predominantly sexual mode of transmission complicating childbirth; A60.00 Herpesviral infection of urogenital system, unspecified; O14.15 Severe pre-eclampsia, complicating the puerperium
CPT/HCPCS: 01967; 36415; 59200; 81003; 82565; 82570; 83735; 84156; 84450; 84460; 84520; 85027; 86592; 86850; 86900; 86901; G0463; A9270; J1650; J2270; J2795; J3475; J7120